=== PATIENT | male | born 1950 | race African-American/Black ===

== ENCOUNTER 2020-07-12 09:15 | Inpatient (IN) | payer OTHER ==
--- NOTE | 2020-07-10 12:00 | EKG ---
Test Date: 2020-07-09 Test Time: 14:41:00 Bingo Worker: GIL MEASUREMENT RESULTS: Intervals: Rate: 89 MA: 172 QRSD: 88 QT: 380 QTc: 462 Nash: P: 65 MA: 172 QRS: 5 T: 70 INTERPRETIVE STATEMENTS: Normal sinus rhythm Nonspecific T wave abnormality Prolonged QT Abnormal ECG No previous ECG available for comparison Electronically Signed On 07-10-20 11:57:08 CDT by Johan Tesfaye
[2020-07-12] MEDS ORDERED: NA CHLORIDE 0.9% 1,000 ML ONE ×3 (09:52→15:00)
[2020-07-12] MEDS ORDERED: FENTANYL CITR 100 MCG/2 ML IV ONE (10:42)
[2020-07-12] MEDS ORDERED: CEFAZOLIN/SWI 1gm 1 GM/10 ML SYR ONE (10:46)
[2020-07-12] MEDS: LIDOCAINE 1% W/EPI 1:100,000 MDV 20 ML VIAL ONE ×2 (10:54→12:25)
[2020-07-12] MEDS: EPINEPHRINE/PF 1 MG/ML AMP ONE ×2 (10:55→12:42)
[2020-07-12] MEDS ORDERED: LIDOCAINE 2% MPF 5 ML VIAL ONE ×2 (11:31→12:04)
[2020-07-12] MEDS ORDERED: LIDOCAINE 1% MPF 2 ML AMPULE ONE (11:43)
[2020-07-12] MEDS ORDERED: GLYCOPYRROLATE 0.2 MG/ML SYR ONE (11:59)
[2020-07-12] MEDS ORDERED: KETAMINE HCL 500 MG/5 ML VIAL ONE (12:04)
[2020-07-12] MEDS ORDERED: MIDAZOLAM HCL 2 MG/2 ML INJ ONE (12:04)
[2020-07-12] MEDS ORDERED: SUGAMMADEX SODIUM 200 MG/2 ML VIAL IV ONE (12:15)
[2020-07-12] MEDS ORDERED: ROCURONIUM 50 MG/5 ML VIAL IV ONE (12:15)
[2020-07-12] MEDS ORDERED: SUCCINYLCHOLINE 20 MG/ML (10 ML) IV ONE (12:15)
[2020-07-12] MEDS ORDERED: propofoL 200 MG/20 ML VIAL IV ONE (13:15)
[2020-07-12] MEDS ORDERED: FENTANYL CITR 100 MCG/2 ML ONE (13:44)
[2020-07-12] MEDS ORDERED: carisoprodoL 350 MG TAB PO PRN ×2 (14:58→15:09)
[2020-07-12] MEDS ORDERED: OXYCODONE HCL 5 MG TAB PO PRN (14:59)
[2020-07-12] MEDS ORDERED: ALPRAZOLAM 1 MG TABLET PO ONE (15:00)
[2020-07-12] MEDS ORDERED: OXYCODONE HCL 30 MG PO PRN ×2 (15:11→16:19)
[2020-07-12] MEDS ORDERED: ALPRAZOLAM 1 MG TABLET PO PRN (15:48)
[2020-07-12] MEDS ORDERED: GLUCAGON 1 MG/VIAL IM PRN (16:21)
[2020-07-12] MEDS ORDERED: D50W 25 GM/50 ML SYRINGE IV PRN (16:21)
[2020-07-12] MEDS: INSULIN -REGULAR HUMAN 50 UNIT/0.5 ML ML SQ SCH ×2 (16:30→21:00)
--- NOTE | 2020-07-12 16:41 | P.CNS ---
Date of Consult: 07/12/20 Reason for Consult: Medical Management Requesting Physician: Nikki Foster Primary Care Provider: Dr. Mccloud Chief Complaint: Dysphagia History of Present Illness: 69-year-old male who presented with dysphagia to ENT Dr. Foster in early June. Patient had been seen by PCP prior to that time for left neck swelling and spitting up blood. 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 Significant local extension of tumor was identified. Significant bulky bilateral jugolodigastric chain metastatic lymphadenopathy was also identified. The patient was brought in for direct laryngoscopy and tracheostomy. This was performed today by ENT. Patient admitted for further evaluation and treatment. I was consulted for medical management. Patient with past medical history of diabetes, hypertension, chronic pain, COPD, anxiety, and tobacco abuse. Post operatively patient is doing well. No complaints noted. at bedside. Allergies No Known Allergies Allergy (Verified 07/12/20 09:47) Home medications list reviewed: Yes Home Medications: ALPRAZolam [Alprazolam] 2 mg PO QIDP PRN 07/09/20 Albuterol Sulfate [Proair Respiclick] 90 mcg IH Q4HP PRN 07/09/20 Amlodipine [Norvasc] 10 mg PO DAILY 07/09/20 Aspirin [Aspirin EC 81 MG] 81 mg PO DAILY 07/09/20 Carisoprodol [Soma] 350 mg PO QIDP PRN 07/09/20 Glimepiride [Amaryl] 4 mg PO BID 07/09/20 Guaifenesin/Codeine Phosphate [Codeine-Guaifen 10-100 mg/5 ml] 120 ml PO Q6HP PRN 07/09/20 Metformin HCl 1,000 mg PO BIDWM 07/09/20 Oxycodone HCl 30 mg PO Q6HP PRN 07/09/20 147/Iron/Folic Acid [Azesco Tablet] 1 each PO DAILY 07/09/20 Ramipril [Altace] 10 mg PO BID 07/09/20 Tadalafil [Cialis] 10 mg PO DAILY 07/09/20 hydroCHLOROthiazide [Hydrochlorothiazide] 25 mg PO DAILY 07/09/20 - Past Medical/Surgical History Diabetic: Yes -: HTN -: Diabetes mellitus type 2 -: Asthma -: Chronic pain -: Anxiety -: Tobacco abuse Past Surgical History: Patient denies surgical history Psychosocial/ Personal History: Patient is - Family History Father Family History: Reviewed- Non-Contributory - Social History Smoking Status: Current every day smoker Counseled patient to stop smoking for: less than 10 minutes Smoking therapy provided: Yes Patient receptive to therapy: No Alcohol use: No CD- Drugs: No Caffeine use: Yes Place of Residence: Home Review of Systems General: As per HPI Eyes: Unremarkable ENT: As per HPI Respiratory: As per HPI Cardiovascular: Unremarkable Gastrointestinal: Unremarkable Genitourinary: Unremarkable Musculoskeletal: Unremarkable Integumentary: Unremarkable Neurological: Unremarkable Lymphatics: Unremarkable Physical Examination Temp Pulse Resp BP Pulse Ox 97 F 82 16 161/83 H 07/12/20 14:28 07/12/20 14:28 07/12/20 14:28 07/12/20 14:28 Conclusions/Impression: Physical exam General: Patient alert, cooperative. HEENT: Tracheostomy noted. No difficulty with breathing. Heart: Regular rate and rhythm Lungs: Clear to auscultation Abdomen: Soft nontender nondistended Extremities: Good range of motion to the upper lower extremities without any focal deficits. Psych: Patient in good spirit. 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 Patient will go to ICU to at least monitor Overnite. Case discussed in detail with ENT. ENT suspects patient will likely remain in the hospital for at least 5-7 days until tracheostomy is stable for discharge. Will address diabetes, hypertension, COPD, tobacco abuse, anxiety and chronic pain. Home medications reviewed. Will monitor closely. Will add Brovana Atrovent. Respiratory consulted to maintain sats above 93% in continue with trach care. Will continue monitor closely with ENT. Diabetes mellitus type 2: Will review and adjust home medication. Hold glipizide at this time. Continue metformin. Will check A1c. Sliding scale in place. Hypertension: Continue home medications-Norvasc, ramipril, hydrochlorothiazide. Parameters in place. Will adjust medication accordingly. COPD: Will provide medication for COPD-Brovana, Atrovent and albuterol. Tobacco abuse: Tobacco cessation addressed in detail. Nicotine patch ordered. Anxiety: Continue with home medication-clonazepam Chronic pain: Continue with home medication-oxycodone and muscle relaxer-Soma. Code status: Patient is full code DVT prophylaxis: Will start Lovenox if okay with ENT. Advanced care planning-30 min: Spoke with . Plan of care is for patient to be discharge home once appropriate for discharge. Time Spent Managing Pts care (In Minutes): 55
[2020-07-12] MEDS: METFORMIN HCL 500 MG TAB PO SCH (17:00)
[2020-07-12] MEDS: NICOTINE 14 MG/PAT TD SCH (17:35)
--- NOTE | 2020-07-12 19:25 | OP ---
Date of Procedure: 07/12/2020 Surgeon: Nikki Foster MD Preoperative Diagnoses: Very large neoplasm encapsulating the base of tongue and supraglottis with impending airway obstruction and cervical lymphadenopathy concerning for malignant metastases. 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 Procedure: Awake tracheostomy and direct laryngoscopy with biopsy. Indication For Procedure: The patient presented to the ENT Clinic with complaints of dysphagia, postnasal drainage, and an overall complex history with recent worsening of throat and voice symptoms, some hemoptysis, and swelling of the neck. His office evaluation was worrisome with a large hard palpable mass of the base of tongue and palpable lymphadenopathy. A recommendation for flexible laryngoscopy was deferred and a CT scan was ordered. The patient was subsequently seen on July 09, at which time he had mentally prepared himself for laryngoscopy. That study demonstrated a large exophytic, but possibly submucosal tumor encompassing the base of tongue and completely obscuring any view of the vallecula, epiglottis, and larynx. The right arentynoid was barely visible around the tumor during the exam and recommendation was made for biopsy and consideration for tracheostomy. The patient was not in any acute distress and the procedure was scheduled electively for the . In later review of the laryngoscopy findings and CT findings by the surgeon, a decision was made that the safest plan for this patient included an awake tracheostomy and an appropriate surgical and anesthetic plan was developed with the care team. Description Of Procedure: The patient did tolerate lying in a nearly supine position without subjective airway obstruction. The patient was administered small doses of Ativan and fentanyl by the Anesthesia service. During the procedure, a topical and local anesthetic was provided including injection of lidocaine through the thyrohyoid membrane to provide topical anesthesia. A bilateral superior nerve block was also given by the Anesthesia service. The planned incision site was injected with 5 mL of 1% lidocaine with epinephrine by the surgeon. The patient was fitted with nasal cannula, which was used intermittently during the procedure during periods of cessation of Bovie electrocautery. The skin was prepped in a sterile fashion with Betadine and draped in the standard fashion for tracheostomy. The patient was stable and spontaneously ventilating without significant difficulty. A shoulder roll was placed and the neck was extended to the degree feasible. A 2 cm vertical incision was made in the skin of the midline overlying the lower larynx and upper trachea. A 1 x 1 cm area of fatty tissue was removed from the subcutaneous region using Bovie electrocautery. The strap muscles were identified in the midline and spread laterally. The surgical field was palpated revealing the cricoid cartilage to be somewhat low. The thyroid isthmus was encountered and carefully elevated off the trachea and divided using Bovie electrocautery. The tracheal wall was then visualized and isolated. A cricoid hook was used to elevate the cricoid cartilage and an incision was made using a scalpel between the second and third tracheal rings. The incision was slightly enlarged using curved scissors. The initial attempts at placement of an 8 Shiley tracheostomy tube was unsuccessful and decision was made to use a smaller tracheostomy tube. The patient was felt to be actively ventilating through the nose, mouth, and tracheostomy incision while the 6.0 tube was prepared. The 6 MEDICAL OBSERVER Shiley tracheostomy tube was then passed without significant difficulty into the trachea, and bloody secretions were coughed through the tracheostomy tube. The cricoid hook was released. The inner cannula was placed and the cuff was inflated. The patient was then administered general anesthetic through the tracheostomy tube. The tracheostomy tube was secured to the patient's skin in a four-point fashion using 2-0 silk sutures and umbilical trach tie was also secured for further stabilization of the tracheostomy tube. The drapes were then divided in order to allow for laryngoscopy. During preparation of laryngoscopy materials, the anesthesiologist used a laryngoscope to briefly evaluate the larynx. There was no significant visible normal anatomy noted. The tumor was noted to be very firm and the arytenoids and vocal cords could not be visualized confirming the decision to perform the upfront tracheostomy. An exam under anesthesia was then performed by the surgeon. Palpation of the base of tongue revealed a large firm tumor of approximately 5 x 6 cm, which encompassed the base of tongue. There was no palpable space of the vallecula. I was unable to palpate any of the epiglottis. The Rita laryngoscope was then used to perform a direct laryngoscopy. I was unable to visualize the piriform sinus, the arytenoids, the vocal cords, or anything resembling an epiglottis. The entire field was occupied by the large firm tumor. I was unable to determine whether the tumor was emanating from the epiglottis, the vallecula, or base of tongue, as all of these structures were completely involved in tumor. The Rita was then held over the top portion of the tumor and a large cup forceps was used to obtain several small samples. Some bleeding from the biopsy site was noted. There was also some bleeding likely from the tumor as a result of the laryngoscopic exam by the anesthesiologist. The oropharynx was thoroughly irrigated with several aliquots of cold saline and direct pressure using a 4 x 4 gauze sponge was applied to the biopsy site until hemostasis was obtained. The laryngoscope and tooth guard were removed and the patient was returned to care of Anesthesia for awakening. In the operating room during initial emergence from anesthesia, there was moderate active bleeding noted from the tracheostomy site, but no blood within the oropharynx or coming through the tracheostomy tube. Suction to this area and direct pressure was applied. A large sheet of Surgicel was divided lengthwise and tucked into the tracheostomy wound taking care to leave the ends for later removal and to prevent risk of dislodgement of the Surgicel into the airway. The patient was then transported to the recovery room in stable condition. Due to the high risk of airway obstruction from the tumor in case of accidental tracheostomy tube dislodgement, the decision was made to place this patient in an ICU setting for 24 to 48 hours to ensure early maturation of the tracheostomy site. Coordination with the hospitalist for care of the patient's other chronic medical conditions will be made. The patient's anticipated duration of stay is 5 to 7 days. I will plan to perform the patient's first tracheostomy tube on postoperative day 5 or 6 pending availability of DME equipment, Home Health, and the patient's similarity with tracheostomy care and teaching. GILBERTO/KELLEY Voice ID: [id number] Report ID: [id number] SONJA
[2020-07-12] MEDS: ramipriL 5 MG CAP PO SCH (20:51)
[2020-07-12] MEDS ORDERED: ramipriL 5 MG CAP PO SCH (21:00)
[2020-07-12] MEDS: ARFORMOTEROL TARTRATE 15 MCG/2 ML VIAL.NEB NEB SCH (21:10)
[2020-07-13 05:40] LABS: Absolute Lymphocytes (CBC) 1.5 K/uL (0.7-4.9); Basophils % 0.7 % (0-1.3); Hematocrit 36.2 % (39.6-49.0); Lymphocytes % 18.4 % (15.3-44.8); MPV 8.1 fL (7.6-11.3); RBC Red Blood Cell Count 4.48 M/uL (4.33-5.43)
[2020-07-13 05:59] LABS: BUN Blood Urea Nitrogen 7 mg/dL (7-18); Bicarbonate 31 mmol/L (21-32); Glucose Level 176 mg/dL (74-106); Magnesium 2.2 mg/dL (1.8-2.4); Potassium 3.1 mmol/L (3.5-5.1); Sodium Level 143 mmol/L (136-145); Thyroid Stimulating Hormone 0.228 uIU/mL (0.360-3.740)
[2020-07-13] MEDS: INSULIN -REGULAR HUMAN 50 UNIT/0.5 ML ML SQ SCH ×4 (07:30→20:28)
--- NOTE | 2020-07-13 07:54 | P.PN ---
Date of Service: 07/13/20 S: POD 1 awake trach and DL/biospy. No overnight complaints from nursing staff. No significant overnight events O: Sleeping, arousable. 6 ANCHOR OPERATOR Shiley with cuff inflated on trach collar. No active bleeding. Surgicel in place. When cuff is deflated, expected degree of coughing of blood streaked mucous is noted but calms after awhile. Thick clear and blood streaked oral secretions are noted. A/P: 1. Airway obstruction: continue trach and fresh trach precautions. Do not remove or change trach ties, do not remove trach sutures. Due to risk of airway obstruction in case of trach dislodgement, I recommend continued ICU status until tomorrow. If patient is doing well, I will plan to move him to floor status. Keep cuff deflated. Begin RT instruction in self suctioning and inner canula care. 2. H&N malignancy - biopsy pending. Patient will likely require XRT and chemo to be arranged on outpatient basis. Will plan to discuss referral options with patient and later this week including local and [place] options 3. Electrolyte abnormalities - appreciate hospitalist management 4. OK to advance to soft/full liquid diet per patient tolerance. Will order ADA diet 5. DVT prophy: SCD in place. Started Lovenox today - watch for tumor and surgical site bleeding - if continues/excessive, we made need to hold the blood thinners.
[2020-07-13] MEDS ORDERED: POTASSIUM CL SA 10 MEQ TAB PO ONE ×2 (07:55→08:41)
[2020-07-13] MEDS ORDERED: GLIMEPIRIDE 2 MG TABLET PO SCH (08:00)
--- NOTE | 2020-07-13 08:17 | P.PN ---
Subjective Date of Service: 07/13/20 Primary Care Provider: Dr. Mccloud Chief Complaint: Dysphagia Subjective: Improving, Doing well Physical Examination - Vital Signs Temperature: 98.4 F Blood Pressure: 162/90 Pulse: 85 Respirations: 20 Pulse Ox (%): 96 - Studies Laboratory Data (last 24 hrs) 07/13/20 05:02: Phosphorus 2.3 L 07/13/20 05:02: Sodium 143, Potassium 3.1 L, BUN 7, Creatinine 0.59, Glucose 176 H, Magnesium 2.2 07/13/20 05:02: WBC 8.20, Hgb 12.2 L, Hct 36.2 L, Plt Count 275 Assessment & Plan Discharge Plan: Home Plan to discharge in: Greater than 2 days Physician Review Additional Text: Physical Exam: Patient reports no complaints at this time. GENERAL: The patient is a well-developed, well-nourished, in no apparent distress. Alert and oriented x3. VITAL SIGNS: Reviewed HEENT: Postop changes noted to the neck area. Trach in place. Sutures in place. No significant edema or erythema. LUNGS: Clear to auscultation. No crackles or wheezes are heard. HEART: Regular rate and rhythm, no appreciable gallops, rubs, murmurs or extra heart sounds ABDOMEN: Soft, nontender, and nondistended. Positive bowel sounds. No hepatosplenomegaly was noted. EXTREMITIES: Without any cyanosis, clubbing, rash, lesions or peripheral edema. NEUROLOGIC: The patient is oriented to person, place and time. Strength and sensation are grossly intact. Face is symmetric. SKIN: Normal color, turgor and temperature. No ulcerations or rashes noted. 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 Continue with trach care and trach precautions. ENT recommends not to remove or change trach ties. ENT recommends to keep the patient in ICU for at least 1 more day. Continue with RT instruction in self suctioning and entering cannula care as recommended by ENT. Maintain oxygen saturations above 93%. Biopsy pending. Patient will likely require radiation and chemo as outpatient. Electrolytes to be replaced. DVT prophylaxisLovenox will be started today. May need to hold if with surgical site bleeding. We will monitor this closely. ENT plans to advance diet. Encourage ambulation. Diabetes mellitus type 2: Continue to glipizide at this time. Continue metformin. Hemoglobin A1c 6.6. Sliding scale in place. Hypertension: Blood pressure stable. Continue home medications-Norvasc, ramipril, hydrochlorothiazide. Parameters in place. Will adjust medication accordingly. COPD: Continue with COPD treatment-Brovana, Atrovent and albuterol. Tobacco abuse: Tobacco cessation addressed in detail. Nicotine patch in place. Anxiety: Continue with home medication-clonazepam Chronic pain: Continue with home medication-oxycodone and muscle relaxer-Soma. Code Status: Full Code DVT prophylaxis: Lovenox Advanced Care Planning-30 minutes: Plan of care for the patient's discharge was discussed in detail with the patient and family yesterday. Patient plans to go home at discharge.. Time Spent Managing Pts Care (In Minutes): 55
[2020-07-13] MEDS: AMLODIPINE 10 MG TAB PO SCH (08:18)
[2020-07-13] MEDS: ENOXAPARIN 40 MG/0.4 ML SQ SCH (08:19)
[2020-07-13] MEDS: METFORMIN HCL 500 MG TAB PO SCH ×2 (08:19→16:48)
[2020-07-13] MEDS: ramipriL 5 MG CAP PO SCH ×2 (08:19→20:28)
[2020-07-13] MEDS: MOVANTIK 25 MG PO SCH (08:22)
[2020-07-13] MEDS: PRENATAL PO SCH (08:23)
[2020-07-13] MEDS: NICOTINE 14 MG/PAT TD SCH (08:23)
[2020-07-13] MEDS: IRON PO SCH (08:23)
[2020-07-13] MEDS: FOLIC ACID PO SCH (08:23)
[2020-07-13] MEDS ORDERED: METFORMIN HCL 500 MG TAB ONE ×2 (08:23→16:32)
[2020-07-13] MEDS ORDERED: AMLODIPINE 10 MG TAB ONE (08:23)
[2020-07-13] MEDS ORDERED: ENOXAPARIN 40 MG/0.4 ML SQ ONE (08:24)
[2020-07-13] MEDS: hydroCHLOROthiazide 25 MG TAB PO SCH (08:24)
[2020-07-13] MEDS ORDERED: hydroCHLOROthiazide 25 MG TAB ONE (08:44)
[2020-07-13] MEDS ORDERED: hydroCHLOROthiazide 25 MG TAB PO SCH (09:00)
[2020-07-13] MEDS ORDERED: AMLODIPINE 10 MG TAB PO SCH (09:00)
[2020-07-13] MEDS: ARFORMOTEROL TARTRATE 15 MCG/2 ML VIAL.NEB NEB SCH ×2 (09:55→20:13)
[2020-07-13] MEDS ORDERED: INSULIN -REGULAR HUMAN 50 UNIT/0.5 ML ML ONE (11:33)
[2020-07-13] MEDS ORDERED: ARFORMOTEROL TARTRATE 15 MCG/2 ML VIAL.NEB ONE (20:30)
[2020-07-14 05:46] LABS: Absolute Lymphocytes (CBC) 2.4 K/uL (0.7-4.9); Basophils % 1.3 % (0-1.3); Hematocrit 34.8 % (39.6-49.0); Lymphocytes % 25.6 % (15.3-44.8); MPV 8.4 fL (7.6-11.3); RBC Red Blood Cell Count 4.33 M/uL (4.33-5.43)
[2020-07-14 05:58] LABS: BUN Blood Urea Nitrogen 11 mg/dL (7-18); Bicarbonate 30 mmol/L (21-32); Glucose Level 154 mg/dL (74-106); Magnesium 2.1 mg/dL (1.8-2.4); Potassium 3.3 mmol/L (3.5-5.1); Sodium Level 142 mmol/L (136-145)
[2020-07-14] MEDS: INSULIN -REGULAR HUMAN 50 UNIT/0.5 ML ML SQ SCH ×4 (07:30→20:22)
[2020-07-14] MEDS: ENOXAPARIN 40 MG/0.4 ML SQ SCH (07:57)
[2020-07-14] MEDS: hydroCHLOROthiazide 25 MG TAB PO SCH (07:57)
[2020-07-14] MEDS: AMLODIPINE 10 MG TAB PO SCH (07:58)
[2020-07-14] MEDS: METFORMIN HCL 500 MG TAB PO SCH ×2 (07:58→17:13)
[2020-07-14] MEDS: ramipriL 5 MG CAP PO SCH ×2 (07:58→20:55)
[2020-07-14] MEDS: IRON PO SCH (07:59)
[2020-07-14] MEDS: MOVANTIK 25 MG PO SCH (07:59)
[2020-07-14] MEDS: NICOTINE 14 MG/PAT TD SCH (07:59)
[2020-07-14] MEDS: PRENATAL PO SCH (07:59)
[2020-07-14] MEDS: FOLIC ACID PO SCH (07:59)
[2020-07-14] MEDS ORDERED: POTASSIUM CL SA 10 MEQ TAB PO ONE ×3 (08:13→18:49)
[2020-07-14] MEDS ORDERED: METFORMIN HCL 500 MG TAB ONE (08:13)
[2020-07-14] MEDS ORDERED: AMLODIPINE 10 MG TAB ONE (08:13)
[2020-07-14] MEDS ORDERED: ENOXAPARIN 40 MG/0.4 ML SQ ONE (08:14)
[2020-07-14] MEDS ORDERED: hydroCHLOROthiazide 25 MG TAB ONE (08:14)
--- NOTE | 2020-07-14 09:29 | P.PN ---
Subjective Date of Service: 07/14/20 Primary Care Provider: Dr. Mccloud Chief Complaint: Dysphagia Subjective: Improving, Doing well Physical Examination - Vital Signs Temperature: 97.4 F Blood Pressure: 146/88 Pulse: 84 Respirations: 14 Pulse Ox (%): 98 - Studies Laboratory Data (last 24 hrs) 07/14/20 05:15: Sodium 142, Potassium 3.3 L, BUN 11, Creatinine 0.63, Glucose 154 H, Magnesium 2.1 07/14/20 05:15: WBC 9.20, Hgb 11.7 L, Hct 34.8 L, Plt Count 270 Assessment & Plan Discharge Plan: Home Plan to discharge in: Greater than 2 days Physician Review Additional Text: Physical Exam: Patient reports no complaints at this time. GENERAL: The patient is a well-developed, well-nourished, in no apparent distress. Alert and oriented x3. VITAL SIGNS: Reviewed HEENT: Postop changes noted to the neck area. Trach in place. Sutures in place. No significant edema or erythema. LUNGS: Clear to auscultation. No crackles or wheezes are heard. HEART: Regular rate and rhythm, no appreciable gallops, rubs, murmurs or extra heart sounds ABDOMEN: Soft, nontender, and nondistended. Positive bowel sounds. No hepatosplenomegaly was noted. EXTREMITIES: Without any cyanosis, clubbing, rash, lesions or peripheral edema. NEUROLOGIC: The patient is oriented to person, place and time. Strength and sensation are grossly intact. Face is symmetric. SKIN: Normal color, turgor and temperature. No ulcerations or rashes noted. 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 Continue with trach care and trach precautions. ENT recommends not to remove or change trach ties. Continue with RT instruction in self suctioning and entering cannula care as recommended by ENT. Maintain oxygen saturations above 93%. Biopsy pending. Patient will likely require radiation and chemo as outpatient. Electrolytes to be replaced. DVT prophylaxisLovenox will be started today. May need to hold if with surgical site bleeding. We will monitor this closely. ENT plans to advance diet. Encourage ambulation. ENT to reassess today. Possible transfer to the floor today if not tomorrow if doing well. I will turn the service over to the hospitalist team tomorrow. I will go plan of care with him. Diabetes mellitus type 2: Continue metformin. Hemoglobin A1c 6.6. Sliding scale in place. Hypertension: Blood pressure stable. Continue home medications-Norvasc, ramipril, hydrochlorothiazide. Parameters in place. Will adjust medication accordingly. COPD: Continue with COPD treatment-Brovana, Atrovent and albuterol. Tobacco abuse: Tobacco cessation addressed in detail. Nicotine patch in place. Anxiety: Continue with home medication-clonazepam Chronic pain: Continue with home medication-oxycodone and muscle relaxer-Soma. Code Status: Full Code DVT prophylaxis: Lovenox Advanced Care Planning-30 minutes: Plan of care for the patient's discharge was discussed in detail with the patient and family yesterday. Patient plans to go home at discharge.. Time Spent Managing Pts Care (In Minutes): 55
[2020-07-14] MEDS: ARFORMOTEROL TARTRATE 15 MCG/2 ML VIAL.NEB NEB SCH ×2 (13:40→20:50)
[2020-07-14] MEDS ORDERED: ARFORMOTEROL TARTRATE 15 MCG/2 ML VIAL.NEB ONE (14:00)
[2020-07-14] MEDS: carisoprodoL 350 MG TAB PO PRN (19:17)
[2020-07-15 05:42] LABS: BUN Blood Urea Nitrogen 10 mg/dL (7-18); Bicarbonate 28 mmol/L (21-32); Glucose Level 140 mg/dL (74-106); Magnesium 2.2 mg/dL (1.8-2.4); Potassium 3.7 mmol/L (3.5-5.1); Sodium Level 140 mmol/L (136-145)
[2020-07-15 05:47] LABS: Absolute Lymphocytes (CBC) 2.3 K/uL (0.7-4.9); Basophils % 1.1 % (0-1.3); Hematocrit 34.6 % (39.6-49.0); Lymphocytes % 25.7 % (15.3-44.8); MPV 8.4 fL (7.6-11.3); RBC Red Blood Cell Count 4.27 M/uL (4.33-5.43)
[2020-07-15] MEDS: INSULIN -REGULAR HUMAN 50 UNIT/0.5 ML ML SQ SCH ×4 (07:30→21:00)
[2020-07-15] MEDS ORDERED: POTASSIUM CL SA 10 MEQ TAB PO ONE (08:00)
[2020-07-15] MEDS: NICOTINE 14 MG/PAT TD SCH (08:33)
[2020-07-15] MEDS: ramipriL 5 MG CAP PO SCH ×2 (08:34→21:39)
[2020-07-15] MEDS: hydroCHLOROthiazide 25 MG TAB PO SCH (08:35)
[2020-07-15] MEDS: METFORMIN HCL 500 MG TAB PO SCH ×2 (08:35→16:17)
[2020-07-15] MEDS: ENOXAPARIN 40 MG/0.4 ML SQ SCH (08:36)
[2020-07-15] MEDS: AMLODIPINE 10 MG TAB PO SCH (08:37)
[2020-07-15] MEDS: IRON PO SCH (08:41)
[2020-07-15] MEDS: FOLIC ACID PO SCH (08:41)
[2020-07-15] MEDS: MOVANTIK 25 MG PO SCH (08:41)
[2020-07-15] MEDS: PRENATAL PO SCH (08:41)
[2020-07-15] MEDS: ARFORMOTEROL TARTRATE 15 MCG/2 ML VIAL.NEB NEB SCH ×2 (08:45→20:10)
[2020-07-15] MEDS: carisoprodoL 350 MG TAB PO PRN (11:57)
[2020-07-16] MEDS: IPRATROPIUM BROM 0.5MG/2.5ML NEB PRN ×2 (01:25→21:10)
[2020-07-16] MEDS: ALBUTEROL 2.5 MG/3 ML NEB SOL NEB PRN ×2 (01:25→21:10)
[2020-07-16] MEDS: carisoprodoL 350 MG TAB PO PRN (02:20)
[2020-07-16 05:58] LABS: BUN Blood Urea Nitrogen 11 mg/dL (7-18); Bicarbonate 29 mmol/L (21-32); Glucose Level 151 mg/dL (74-106); Potassium 3.5 mmol/L (3.5-5.1); Sodium Level 139 mmol/L (136-145)
[2020-07-16] MEDS ORDERED: POTASSIUM CL SA 10 MEQ TAB PO ONE ×2 (06:26→09:00)
[2020-07-16] MEDS: INSULIN -REGULAR HUMAN 50 UNIT/0.5 ML ML SQ SCH ×4 (07:30→21:00)
--- NOTE | 2020-07-16 08:00 | P.PN ---
Date of Service: 07/16/20 S: POD 4 awake trach and DL/biospy. No overnight complaints from nursing staff. No significant overnight events. Kendra PO, cleared by PT. CM for HH /DME in progress O: 6 COMPACTING MACHINE OPERATOR/TENDER Shiley with cuff deflated on trach collar. No active bleeding. Surgicel x [address] (right superior). 1 piece previously removed. Thick clear and white streaked oral secretions are noted. A/P: 1. Airway obstruction: Trach change today without incident including removal of surgical from the site. Due to body habitus and trach size, it is important to keep velcro ties snug. Continue RT instruction in suctioning and trach cleaning/site care. 2. H&N malignancy - biopsy pending. Patient will likely require XRT and chemo to be arranged on outpatient basis. Patient would like to stay locally. Will initiate outpatient referral to Med Onc/Rad Onc. 3. Electrolyte abnormalities - resolved. appreciate hospitalist management 4. Continue diet 5. DVT prophy: SCD in place. On Lovenox without bleeding 6. ST for PMV if a candidate 7. Continue D/C planning. Once HH and DME including trach supplies and suction are available, patient is eligible for discharge home.
[2020-07-16] MEDS: ARFORMOTEROL TARTRATE 15 MCG/2 ML VIAL.NEB NEB SCH ×2 (08:43→21:10)
[2020-07-16] MEDS: MOVANTIK 25 MG PO SCH (09:00)
[2020-07-16] MEDS: FOLIC ACID PO SCH (09:00)
[2020-07-16] MEDS: ENOXAPARIN 40 MG/0.4 ML SQ SCH (09:00)
[2020-07-16] MEDS ORDERED: POTASSIUM 25 MEQ EFFERV TAB PO ONE ×2 (09:00→13:00)
[2020-07-16] MEDS: PRENATAL PO SCH (09:00)
[2020-07-16] MEDS: IRON PO SCH (09:00)
[2020-07-16] MEDS: METFORMIN HCL 500 MG TAB PO SCH ×2 (10:01→16:59)
[2020-07-16] MEDS: hydroCHLOROthiazide 25 MG TAB PO SCH (10:02)
[2020-07-16] MEDS: AMLODIPINE 10 MG TAB PO SCH (10:02)
[2020-07-16] MEDS: NICOTINE 14 MG/PAT TD SCH (10:03)
[2020-07-16] MEDS: ramipriL 5 MG CAP PO SCH ×2 (10:03→21:34)
[2020-07-17] MEDS: ALBUTEROL 2.5 MG/3 ML NEB SOL NEB PRN ×3 (01:40→13:10)
[2020-07-17] MEDS: IPRATROPIUM BROM 0.5MG/2.5ML NEB PRN ×3 (01:40→13:10)
[2020-07-17 04:46] LABS: BUN Blood Urea Nitrogen 9 mg/dL (7-18); Bicarbonate 29 mmol/L (21-32); Glucose Level 147 mg/dL (74-106); Potassium 3.3 mmol/L (3.5-5.1); Sodium Level 137 mmol/L (136-145)
[2020-07-17] MEDS ORDERED: POTASSIUM 25 MEQ EFFERV TAB PO ONE ×2 (06:00→20:00)
[2020-07-17] MEDS: INSULIN -REGULAR HUMAN 50 UNIT/0.5 ML ML SQ SCH ×4 (07:30→20:20)
[2020-07-17] MEDS: ARFORMOTEROL TARTRATE 15 MCG/2 ML VIAL.NEB NEB SCH ×2 (08:00→20:00)
[2020-07-17] MEDS: NICOTINE 14 MG/PAT TD SCH (08:44)
[2020-07-17] MEDS: METFORMIN HCL 500 MG TAB PO SCH ×2 (08:44→17:39)
[2020-07-17] MEDS: AMLODIPINE 10 MG TAB PO SCH (08:44)
[2020-07-17] MEDS: hydroCHLOROthiazide 25 MG TAB PO SCH (08:44)
[2020-07-17] MEDS: ramipriL 5 MG CAP PO SCH ×2 (08:44→20:12)
[2020-07-17] MEDS: MOVANTIK 25 MG PO SCH (08:45)
[2020-07-17] MEDS: FOLIC ACID PO SCH (08:46)
[2020-07-17] MEDS: ENOXAPARIN 40 MG/0.4 ML SQ SCH (08:46)
[2020-07-17] MEDS: PRENATAL PO SCH (08:46)
[2020-07-17] MEDS: IRON PO SCH (08:46)
--- NOTE | 2020-07-17 10:19 | P.PN ---
Subjective Date of Service: 07/15/20 Patient is clinically doing well. Patient denies complaints. Labs are stable Review of Systems 10-point ROS is otherwise unremarkable Physical Examination - Vital Signs Temperature: 98.3 F Blood Pressure: 118/76 Pulse: 71 Respirations: 18 Pulse Ox (%): 100 - Physical Exam General: Alert, In no apparent distress, Oriented x3 Neck: Other (Continue with tracheostomy) Respiratory: Clear to auscultation bilaterally, Normal air movement Cardiovascular: Regular rate/rhythm, Normal S1 S2 Gastrointestinal: Normal bowel sounds, Soft and benign, Non-distended, No tenderness Musculoskeletal: No tenderness Neurological: Sensation intact, Cranial nerves 3-12 intact - Studies Laboratory Data (last 24 hrs) 07/17/20 03:35: Sodium 137, Potassium 3.3 L, BUN 9, Creatinine 0.65, Glucose 147 H Medications List Reviewed: Yes Assessment & Plan - Problems (Diagnosis) (1) Tongue cancer Current Visit: Yes Status: Acute (2) Dysphagia Current Visit: Yes Status: Acute (3) HTN (hypertension) Current Visit: Yes Status: Acute (4) DM2 (diabetes mellitus, type 2) Current Visit: Yes Status: Acute - Plan Plan: 1. Continue with trach care 2. Diet as tolerated 3. Blood pressure and blood sugars are stable 4. The patient continues to do well then anticipate signing off 5. GI and DVT prophylaxis Discharge Plan: Home - Advance Directives Does patient have a Living Will: No Does patient have a Durable POA for Healthcare: Yes - Code Status/Comfort Care Code Status Assessed: Yes Code Status: Full Code Critical Care: No Time Spent Managing PTS Care (In Minutes): 30
--- NOTE | 2020-07-17 10:21 | P.PN ---
Date of Service: 07/16/20 Subjective Patient is doing well with no new complaints. Patient is clinically doing well. Anticipate discharge over the next 24-48 hr. At this time patient is medically stable and will sign off the case. Will follow-up as needed. Review of Systems 10-point ROS is otherwise unremarkable Physical Examination - Vital Signs Reviewed - Physical Exam General: Alert, In no apparent distress, Oriented x3 Neck: Other (Continue with tracheostomy); w/ trach collar Respiratory: Clear to auscultation bilaterally, Normal air movement Cardiovascular: Regular rate/rhythm, Normal S1 S2 Gastrointestinal: Normal bowel sounds, Soft and benign, Non-distended, No tenderness Musculoskeletal: No tenderness Neurological: Sensation intact, Cranial nerves 3-12 intact - Studies Laboratory Data (last 24 hrs) 07/17/20 03:35: Sodium 137, Potassium 3.3 L, BUN 9, Creatinine 0.65, Glucose 147 H Medications List Reviewed: Yes Assessment & Plan - Problems (Diagnosis) (1) Tongue cancer Current Visit: Yes Status: Acute (2) Dysphagia Current Visit: Yes Status: Acute (3) HTN (hypertension) Current Visit: Yes Status: Acute (4) DM2 (diabetes mellitus, type 2) Current Visit: Yes Status: Acute - Plan Plan: 1. Continue with trach care 2. Diet as tolerated 3. Blood pressure and blood sugars are stable 4. The patient continues to do well then anticipate signing off 5. GI and DVT prophylaxis
[2020-07-18 05:39] LABS: BUN Blood Urea Nitrogen 9 mg/dL (7-18); Bicarbonate 29 mmol/L (21-32); Glucose Level 145 mg/dL (74-106); Potassium 3.7 mmol/L (3.5-5.1); Sodium Level 137 mmol/L (136-145)
[2020-07-18] MEDS: INSULIN -REGULAR HUMAN 50 UNIT/0.5 ML ML SQ SCH ×4 (07:30→21:00)
[2020-07-18] MEDS: ARFORMOTEROL TARTRATE 15 MCG/2 ML VIAL.NEB NEB SCH ×2 (08:28→19:45)
[2020-07-18] MEDS: PRENATAL PO SCH (09:00)
[2020-07-18] MEDS: IRON PO SCH (09:00)
[2020-07-18] MEDS: MOVANTIK 25 MG PO SCH (09:00)
[2020-07-18] MEDS: FOLIC ACID PO SCH (09:00)
[2020-07-18] MEDS: ENOXAPARIN 40 MG/0.4 ML SQ SCH (09:00)
[2020-07-18] MEDS ORDERED: POTASSIUM 25 MEQ EFFERV TAB PO ONE (09:00)
[2020-07-18] MEDS: NICOTINE 14 MG/PAT TD SCH (10:56)
[2020-07-18] MEDS: METFORMIN HCL 500 MG TAB PO SCH ×2 (10:57→18:53)
[2020-07-18] MEDS: hydroCHLOROthiazide 25 MG TAB PO SCH (10:57)
[2020-07-18] MEDS: ramipriL 5 MG CAP PO SCH ×2 (10:58→21:57)
[2020-07-18] MEDS: AMLODIPINE 10 MG TAB PO SCH (10:58)
[2020-07-18] MEDS ORDERED: D50W 25 GM/50 ML VIAL IV PRN (14:00)
[2020-07-18] MEDS: carisoprodoL 350 MG TAB PO PRN (22:01)
[2020-07-19 05:08] VITALS: BMI 33.0
[2020-07-19 06:00] LABS: BUN Blood Urea Nitrogen 9 mg/dL (7-18); Bicarbonate 30 mmol/L (21-32); Glucose Level 144 mg/dL (74-106); Potassium 3.7 mmol/L (3.5-5.1); Sodium Level 137 mmol/L (136-145)
[2020-07-19] MEDS: METFORMIN HCL 500 MG TAB PO SCH (08:25)
[2020-07-19] MEDS: ramipriL 5 MG CAP PO SCH (08:26)
[2020-07-19] MEDS: hydroCHLOROthiazide 25 MG TAB PO SCH (08:28)
[2020-07-19] MEDS: MOVANTIK 25 MG PO SCH (08:29)
[2020-07-19] MEDS: ENOXAPARIN 40 MG/0.4 ML SQ SCH (08:30)
[2020-07-19] MEDS: NICOTINE 14 MG/PAT TD SCH (08:31)
[2020-07-19] MEDS: AMLODIPINE 10 MG TAB PO SCH (08:35)
[2020-07-19] MEDS: FOLIC ACID PO SCH (08:37)
[2020-07-19] MEDS: IRON PO SCH (08:37)
[2020-07-19] MEDS: PRENATAL PO SCH (08:37)
[2020-07-19 12:02] VITALS: BP 122/66; TEMP 98.2
[2020-07-19] MEDS: ARFORMOTEROL TARTRATE 15 MCG/2 ML VIAL.NEB NEB SCH (13:05)
[2020-07-19 14:02] VITALS: O2SAT 96
--- NOTE | 2020-07-20 15:35 | DS ---
Date of Discharge: 07/19/2020 Consulting Physician: Dr. Rueda, hospitalist. Condition On Discharge: Stable. 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 Procedures: Awake tracheostomy, July 12, 2020; direct laryngoscopy with biopsy of base of tongue, July 12, 2020. History Of Present Illness: Please refer to initial written HPI within the chart. Laboratory Data: During his admission, the patient had mildly elevated blood sugars and mild electro lyte abnormalities including low potassium and low magnesium, which were managed by the Hospitalist Dimitri mauro. His hemoglobin A1c was 6.6. His TSH was decreased at 0.228. His COVID test was negative. Hospital Course: The patient was initially brought through Day Surgery for direct laryngoscopy and p ossible tracheostomy. In further consideration of the patient's preoperative findings, decision was made by the surgical staff to proceed with an awake tracheostomy followed by direct laryngoscopy, whi ch proceeded smoothly without complication. Due to new placement of a tracheostomy, the patient requ ired observation due to high risk of airway obstruction and in case of accidental tracheostomy dislodgement. The patient was placed in an ICU setting for approximately 48 hours. He appeared to b e doing well and was transferred to the floor. On hospital day 2, he received tracheostomy care, tra cheostomy teaching, and initiation for appropriate tracheostomy supplies. On hospital day 4, Dr. Her garcia performed the first tracheostomy change and evaluated the wound. The tracheostomy stoma was mat uring as appropriate. Coordination between Case Management, the Home Health, and [employer] was p erformed. On July 19, we were able to confirm receipt of all necessary equipment and confirmed the patient was comfortable in care and cleaning of the tracheostomy tube, and he was deemed appropriate for discharge to home. Discharge Medications: Include resumption of patient's home medications. Other than tracheostomy eq uipment and supplies, no additional medications are needed. Discharge Instructions: The patient can resume diet as tolerated and perform activities as tolerated . Followup Appointments: The patient is scheduled to see Dr. Foster on Wednesday, July 23, and scotty gunter for additional outpatient treatment will be arranged at that time. NIK Voice ID: [id number] Report ID: [id number]
== END 2020-07-19 13:51 | disposition home health service (06) | DRG 12 ==
LOC: OR 09:15 → ERHOLD 14:23 → 2ND 07-14 13:53
PROVIDERS: ADMIT Otolaryngology; ATTEND Otolaryngology
PROC: 0B110F4 Bypass Trachea to Cutaneous with Tracheostomy Device, Open Approach (ICD-10-PCS; principal; 2020-07-12 10:45)
PROC: 0CBM8ZX Excision of Pharynx, Via Natural or Artificial Opening Endoscopic, Diagnostic (ICD-10-PCS; 2020-07-12 10:45)
DX: C01 Malignant neoplasm of base of tongue (principal); C77.0 Secondary and unspecified malignant neoplasm of lymph nodes of head, face and neck; J98.8 Other specified respiratory disorders; E11.9 Type 2 diabetes mellitus without complications; I10 Essential (primary) hypertension; J44.9 Chronic obstructive pulmonary disease, unspecified; F41.9 Anxiety disorder, unspecified; G89.29 Other chronic pain; Z20.822 Contact with and (suspected) exposure to COVID-19
CPT/HCPCS: 36415; 80048; 82947; 83036; 83735; 84100; 84132; 84439; 84443; 85025; 88305; 92523; 93005; 94010; 97112; 97116; 97161; J0171; J0330; J0690; J1650; J2250; J2704; J3010; J7030; J7605; U0003